=== PATIENT | male | born 1965 | race Caucasian/White ===

== ENCOUNTER 2016-08-21 12:58 | Emergency (ER) | payer OTHER ==
[2016-08-21 13:06] VITALS: TEMP 98.1
--- NOTE | 2016-08-21 13:30 | EDPHY ---
H & P Time Seen by Provider: 08/21/16 13:16 HPI/ROS: CHIEF COMPLAINT: Hypertension HISTORY OF PRESENT ILLNESS: This patient is a 51-year-old male with history of hypertension who presents to the Emergency Department for persistent hypertension over the past 1.5 weeks. He was seen five days ago by Dr. Vieyra who increased his dosing of Norvasc from 5mg to 10mg daily. After he took this medication today, his blood pressure was elevated at 175/111. He complains of a headache and bilateral tinnitus which he reports is an intermittent complaint of his. He has no additional concerns. His primary care provider is Dr. Madden. REVIEW OF SYSTEMS: Constitutional: No fever, no chills Eyes: No visual changes ENT: +tinnitus, no sore throat Respiratory: No cough, no shortness of breath Cardiac: No chest pain Gastrointestinal: No nausea, no vomiting, no abdominal pain Genitourinary: No hematuria, no dysuria Musculoskeletal: No leg pain or swelling Skin: No rash Neurological: +headache, no numbness, no weakness Psychiatric: No depression Past Medical/Surgical History: Hypertension (Norvasc), migraines. Social History: Non-smoker. Smoking Status: Never smoked Physical Exam: General Appearance: Alert, no distress Eyes: Pupils equal and round, no conjunctival pallor or injection ENT, Mouth: Mucous membranes moist Neck: Normal inspection Respiratory: Lungs are clear to auscultation Cardiovascular: Regular rate and rhythm Gastrointestinal: Abdomen is soft and non- tender Neurological: A&O, nonfocal, normal gait Skin: Warm and dry, no rash Extremities: Nontender, no pedal edema Psychiatric: Mood and affect normal Constitutional: Initial Vital Signs Temperature (C) 36.7 C 08/21/16 13:00 Heart Rate 95 08/21/16 13:00 Respiratory Rate 16 08/21/16 13:00 Blood Pressure 155/107 H 08/21/16 13:00 O2 Sat (%) 95 08/21/16 13:00 O2 Delivery Mode Room Air Allergies/Adverse Reactions: sumatriptan [From Imitrex] Allergy (Verified 02/22/16 08:36) sumatriptan succinate [From Imitrex] Allergy (Verified 02/22/16 08:36) Home Medications: Medication Instructions Recorded ZOLPIDEM TARTRATE [Ambien Cr] 12.5 mg PO 12/12/10 Cetirizine [ZyrTEC 10 mg (RX)] 10 mg PO DAILY 11/11/12 Fluticasone Nasal [Flonase Nasal 2 sprays NASAL DAILY 11/11/12 [place] (RX)] Albuterol [Proventil] 2 sprays IH Q3-4PRN 11/13/14 Amlodipine Besylate 11/13/14 CLONAZEPAM 08/21/16 Lisinopril 20 mg PO DAILY #30 tablet 08/21/16 PRISTIQ 08/21/16 Medical Decision Making ED Course/Re-evaluation: 51-year-old male presents with complaint of persistent hypertension over the past 1.5 weeks as measured by himself at home. He has been evaluated by Dr. Vieyra for hypertension who increased his Norvasc without improvement to his complaint. His only associated complaint is of headache with tinnitus. He has a normal exam. His blood pressure was measured at 155/107 at time of arrival. Will consult with his PCP to evaluate next steps prior to discharge. No further workup is necessary at this time. 1403: Consultation with Dr. David Madden, the patient's PCP, who recommends starting the patient on Lisinopril in addition to Norvasc. I believe that this is an appropriate treatment plan. Dr. Madden will see the patient as an outpatient as soon as possible. I discussed Dr. Madden's recommendation with the patient who is agreeable to this. He will be discharged home in good condition with subsequent follow-up as an outpatient. He understands customary return precautions and will be discharged home in good condition. Departure - Departure Disposition: Home, Routine, Self-Care Clinical Impression: Hypertension Qualifiers: Hypertension type: essential hypertension Qualified Code(s): I10 - Essential ( primary) hypertension Condition: Good Instructions: Hypertension (ED), Lisinopril (By mouth) Additional Instructions: 1. Dr. Madden recommends that you begin taking 20mg Lisinopril daily in addition to the 10mg Norvasc you are currently taking. Continue to monitor your blood pressure while using these medications. 2. Stop by Dr. Madden's office to set up a follow-up appointment as you leave. I have discussed this with Dr. Madden and he expects to see you in his office this week. 3. Return to the Emergency Department if you experience severe headache, lightheadedness, loss of consciousness, or for other serious concerns. Referrals: David Madden MD [Primary Care Provider] - As per Instructions Report Scribed for: Kylah Louise Report Scribed by: Noemí Pineda Date of Report: 08/21/16 Time of Report: 13:27 Physician Review and Approval Statement: 08/21/16 13:27 Portions of this note were transcribed by a medical laboratory technologist. I personally performed a history, physical exam, medical decision making, and confirmed accuracy of information the transcribed note.
[2016-08-21] MEDS ORDERED: LISINOPRIL 20 MG TAB PO ONE (14:07)
[2016-08-21 14:08] VITALS: O2SAT 95
[2016-08-21 14:23] VITALS: BP 133/88; PULSE 85; RESP 18
== END 2016-08-21 14:24 | disposition home or self-care (01) ==
DX: I10 Essential (primary) hypertension (principal)

== ENCOUNTER 2016-10-17 10:41 | Emergency (ER) | payer OTHER ==
[2016-10-17 11:30] VITALS: RESP 18; TEMP 97.7
[2016-10-17 11:39] LABS: COLOR YELLOW; LEUKOCYTE ESTERASE,URINE NEGATIVE (NEGATIVE); NITRITE,URINE NEGATIVE (NEGATIVE)
[2016-10-17] MEDS ORDERED: IBUPROFEN 600 MG TAB PO ONE (11:41)
[2016-10-17] MEDS ORDERED: DIAZEPAM 5 MG TAB PO ONE (11:41)
[2016-10-17] MEDS ORDERED: HYDROCODONE/APAP 5/325 TAB PO ONE (11:41)
[2016-10-17 11:49] LABS: WBC,URINE 0-1 /hpf (0-3)
[2016-10-17 11:50] LABS: BACTERIA TRACE /hpf (NONE SEEN); MUCUS 1+ /lpf (NONE-1+)
--- NOTE | 2016-10-17 12:01 | EDPHY ---
H & P Time Seen by Provider: 10/17/16 11:29 HPI/ROS: this patient awakened with difficulty passing any urine. He had associated dysuria. He states that he had the urge to urinate but is unable past more than a drop or 2 of urine despite multiple attempts. After 2 and 0.5 hours of the symptoms he came in for evaluation. He has never had this problem before. He reports no other associated symptoms. He did ride his road bike a few days ago notice some discomfort from the seat but otherwise has felt fine lately. He is driven here by his by private vehicle for further evaluation. He notes no exacerbating or alleviating factors for his symptoms. He felt fine without difficulty urinating last night. ROS: No fevers or chills. No other constitutional symptoms HEENT: No complaints line pulmonary: No complaints Cardiovascular: No complaints GI: No nausea vomiting or abdominal pain. He did not notice much suprapubic discomfort prior to coming in. no nausea or vomiting : No testicular pain or swelling. No urethral discharge. He did again have a feeling of the urge to urinate. No flank pain integumentary: No skin rash or genital lesions. 7 point ROS is otherwise negative. Past Medical/Surgical History: Depression Hypertension Social History: patient's monogamous with his . No STD risk factors. Smoking Status: Never smoked Physical Exam: General Appearance: Alert, no distress. Eyes: Pupils equal and round no pallor or injection. ENT, Mouth: Mucous membranes moist. Respiratory: There are no retractions, lungs are clear to auscultation. Cardiovascular: Regular rate and rhythm. Gastrointestinal: Minimal suprapubic tenderness with no guarding or rebound. : No epididymal or testicle swelling or tenderness. Circumcised penis with no urethral discharge. No genital lesions. Neurological: GCS 15 back: No CVA tenderness Skin: Warm and dry, no rashes. Extremities are symmetrical, full range of motion. Psychiatric: mood and affect normal DIFFERENTIAL DIAGNOSIS: After history and physical exam differential diagnosis was considered for acute prostatitis, prostate cancer, benign prostatic hypertrophy Constitutional: Initial Vital Signs Temperature (C) 36.5 C 10/17/16 11:00 Heart Rate 67 10/17/16 11:00 Respiratory Rate 18 10/17/16 11:00 Blood Pressure 132/87 H 10/17/16 11:00 O2 Sat (%) 95 08/15/17 11:00 O2 Delivery Mode Room Air Allergies/Adverse Reactions: sumatriptan [From Imitrex] Allergy (Verified 10/17/16 11:28) sumatriptan succinate [From Imitrex] Allergy (Verified 10/17/16 11:28) Home Medications: Medication Instructions Recorded ZOLPIDEM TARTRATE [Ambien Cr] 12.5 mg PO 12/12/10 Cetirizine [ZyrTEC 10 mg (RX)] 10 mg PO DAILY 11/11/12 Fluticasone Nasal [Flonase Nasal 2 sprays NASAL DAILY 11/11/12 [place] (RX)] Albuterol [Proventil] 2 sprays IH Q3-4PRN 11/13/14 Amlodipine Besylate 11/13/14 CLONAZEPAM 08/21/16 Lisinopril 20 mg PO DAILY #30 tablet 08/21/16 PRISTIQ 08/21/16 Amoxicillin/Clavulanate Pot 875 mg PO BID #20 tab 10/17/16 [Augmentin 875 MG TAB (*)] Diazepam [Valium 5 MG (*)] 5 mg PO TID PRN #15 tab 10/17/16 Hydrocodone/APAP 5/325 [[place] 1 - 2 tab PO Q4PRN PRN #15 tab 10/17/16 5/325 (*)] Opium/Belladonna Alkaloids [B & O 1 each IA Q6 #12 supp 10/17/16 supp (*)] Tamsulosin HCl [Flomax 0.4 MG (*)] 0.4 mg PO DAILY #10 cap 10/17/16 MDM/Departure - MDM Medications Given: Discontinued Medications Hydrocodone Bitart/Acetaminophen ([place] 5/325) 1 tab PO EDNOW ONE Stop: 10/17/16 11:42 Last Admin: 10/17/16 11:50 Dose: 1 tab Diazepam (Valium) 5 mg PO EDNOW ONE Stop: 10/17/16 11:42 Last Admin: 10/17/16 11:50 Dose: 5 mg Ibuprofen (Motrin) 600 mg PO EDNOW ONE Stop: 10/17/16 11:42 Last Admin: 10/17/16 11:50 Dose: 600 mg ED Course/Re-evaluation: given the patient's recent bicycle riding acute onset of his symptoms and associated dysuria I think this likely has acute prostatitis and I counseled him regarding this. Aragon catheter was placed by our nurse with 300 cc of urine that appears clear. I counseled the patient regarding Aragon leg bag. I spoke with Dr. Ricardo Harris -urologist on-call who agrees with plan of Augmentin antibiotic, Flomax, B and O suppositories. The patient requests additional medicine for discomfort associated with muscle spasm feeling for Aragon catheter treated here with Vicodin Valium. Will continue the same -small number if needed for symptoms. He will follow up either this Sunday or the following Sunday with Dr. brice in the urology office for removal of the Aragon and further evaluation - Depart Disposition: Home, Routine, Self-Care Clinical Impression: Acute prostatitis Condition: Good Instructions: Prostatitis (ED) Additional Instructions: Diagnosis: Prostatitis 2. Lower urinary tract obstruction plan: Aragon catheter in place for the next 2-3 days. Then have her removed to primary care physician's office or the urologist. He can return here of neither of those places are able to remove a 4 year. Ibuprofen - 400 to600 mg per 6 hours to help with the swelling and the prostate Flomax for prostate swelling in addition Suppository if needed for sphincter spasm Vicodin and/or Valium in addition if needed. No driving, alcohol work on Vicodin and Valium. Return for any significant worsening despite the treatment plan Prescriptions: Amoxicillin/Clavulanate Pot [Augmentin 875 MG TAB (*)] 875 mg PO BID #20 tab Tamsulosin HCl [Flomax 0.4 MG (*)] 0.4 mg PO DAILY #10 cap Referrals: David Madden MD [Primary Care Provider] - As per Instructions Ricardo Harris MD [Medical Doctor] - As per Instructions
[2016-10-17 18:37] VITALS: BP 127/68; PULSE 78; O2SAT 98
== END 2016-10-17 12:55 | disposition home or self-care (01) ==
LOC: CED 10:41
PROC: 0T9B70Z Drainage of Bladder with Drainage Device, Via Natural or Artificial Opening (ICD-10-PCS; principal; 2016-10-17)
DX: N41.0 Acute prostatitis (principal); I10 Essential (primary) hypertension
CPT/HCPCS: 81003-PO; 81015-PO

== ENCOUNTER → 2018-07-12 | Outpatient (CLI) | payer OTHER | LOC: FIMAGING 15:10 | PROVIDERS: ATTEND Family Medicine | DX: M76.62 Achilles tendinitis, left leg (principal) ==